=== PATIENT | female | born 1970 | race Caucasian/White ===

== ENCOUNTER 2016-11-12 12:39 | Emergency (ER) | END 2016-11-12 19:05 | disposition home or self-care (01) | DX: R07.9 Chest pain, unspecified (principal); F17.210 Nicotine dependence, cigarettes, uncomplicated; Z79.82 Long term (current) use of aspirin | CPT/HCPCS: 71010; 84484; 93005; Z7610 ==

== ENCOUNTER 2017-11-29 13:00 | Emergency (ER) | END 2017-11-29 14:21 | disposition home or self-care (01) ==

== ENCOUNTER 2018-04-16 13:13 | Emergency (ER) | END 2018-04-16 15:51 | disposition home or self-care (01) ==

== ENCOUNTER 2018-05-28 22:18 | Inpatient (IN) | END 2018-05-30 16:40 | disposition home or self-care (01) | DRG 66 ==